=== PATIENT | female | born 1960 | race Caucasian/White ===

== ENCOUNTER 2018-06-25 20:03 | Emergency (ER) | payer BC ==
[~2018-06-25] VITALS: Ht 160 cm; Wt 68.9 kg
[2018-06-25] MEDS ORDERED: IBUPROFEN 800 MG TABLET PO ONE (20:45)
--- NOTE | 2018-06-25 21:01 | NUR ---
Xray at bedside.
[2018-06-25] MEDS ORDERED: IBUPROFEN 800 MG TABLET ONE (21:05)
[2018-06-25 22:08] VITALS: BP 138/91
== END 2018-06-25 22:09 | disposition home or self-care (01) ==
LOC: ER 20:05
DX: S42.301A Unspecified fracture of shaft of humerus, right arm, initial encounter for closed fracture (principal); S40.011A Contusion of right shoulder, initial encounter; S89.91XA Unspecified injury of right lower leg, initial encounter; M23.91 Unspecified internal derangement of right knee; Z88.0 Allergy status to penicillin; Z91.041 Radiographic dye allergy status; W01.0XXA Fall on same level from slipping, tripping and stumbling without subsequent striking against object, initial encounter; Y93.89 Activity, other specified; Y92.89 Other specified places as the place of occurrence of the external cause; Y99.8 Other external cause status
CPT/HCPCS: 73030; 73080; 73110; A4663

== ENCOUNTER 2020-04-20 00:58 | Emergency (ER) | payer BC ==
[~2020-04-20] VITALS: Ht 167.6 cm; Wt 65.8 kg
--- NOTE | 2020-04-20 01:10 | NUR ---
Dr. Skelton at bedside for MSE.
[2020-04-20] MEDS ORDERED: TDAP DIPH,PERTUSS,TET VAC/PF 0.5 ML DISP.SYRIN IM ONE ×2 (01:35→02:00)
--- NOTE | 2020-04-20 01:54 | NUR ---
Patient discharged to home in stable condition. Written and verbal after care instructions given. Patient verbalizes understanding of instructions. Stressed follow up or return to ER for worsening s/s. Patient ambulated out of ER with steady gait, no acute signs of distress, VSS, all belongings taken.
[2020-04-20 01:56] VITALS: BP 149/89
== END 2020-04-20 01:56 | disposition home or self-care (01) ==
LOC: ER 01:03
DX: S61.012A Laceration without foreign body of left thumb without damage to nail, initial encounter (principal); W27.8XXA Contact with other nonpowered hand tool, initial encounter; Y92.89 Other specified places as the place of occurrence of the external cause
CPT/HCPCS: 12001; 90471; 90715; 99283; J3490; A4663